=== PATIENT | male | born 1960 | race Caucasian/White ===

== ENCOUNTER 2017-02-20 19:42 | Emergency (ER) | payer BC, OTHER ==
[~2017-02-20] VITALS: Ht 177.8 cm; Wt 80.0 kg
[2017-02-20 20:13] VITALS: BP 146/94; PULSE 108; RESP 16; TEMP 98.2; O2SAT 95
[2017-02-20] MEDS ORDERED: LISI30TA4 PO (20:22)
--- NOTE | 2017-02-20 20:33 | PD ---
HPI Chief Complaint: Psychiatric Symptoms Time Seen by Provider: 20:29 Travel History International Travel<30 days: No Contact w/Intl Traveler<30days: No Traveled to known affect area: No History of Present Illness HPI Patient comes in under a [place] act by police for making suicidal statements. Patient reports that he lost his dog and has been drinking heavily this weekend. Patient denies any homicidal or suicidal ideations currently. Patient states he normally drinks 2-3 beers a day. Patient states he is supposed be taking lisinopril and takes it every other day. Patient denies any chest pain, shortness of breath, fevers, abdominal pain, nausea, vomiting, headache, or other concerns. Denies anything making symptoms better or worse. PFSH Past Medical History Hypertension: Yes Social History Alcohol Use: Yes Tobacco Use: Yes Substance Use: Yes (marijuana) Allergies-Medications (Allergen,Severity, Reaction): Coded Allergies: No Known Allergies (Unverified , 02/20/17) Reported Meds & Prescriptions Reported Meds & Active Scripts Active Reported Lisinopril 30 Mg Tab 15 Mg PO DAILY Review of Systems ROS Limitations: Intoxication Except as stated in HPI: all other systems reviewed are Neg Physical Exam Exam Limitations: Intoxication Narrative GENERAL: Well-developed, well nourished, in no acute distress, and non-ill appearing. Alcohol noted on breath. SKIN: Focused skin assessment warm and dry. HEAD: Atraumatic. Normocephalic. EYES: Pupils equal and round. EOMI. No scleral icterus. No injection or drainage. ENT: No nasal bleeding or discharge. Mucous membranes pink and moist. NECK: Trachea midline. Supple. No nuclear rigidity. CARDIOVASCULAR: Regular rate and rhythm. No murmur appreciated. RESPIRATORY: No accessory muscle use. No respiratory distress. Clear to auscultation. Breath sounds equal bilaterally. MUSCULOSKELETAL: No obvious deformities. No clubbing. No cyanosis. No edema. Full range of motion. NEUROLOGICAL: Awake and alert. No obvious cranial nerve deficits. Motor grossly within normal limits. Normal speech. PSYCHIATRIC: Appropriate mood and affect. Data Data Last Documented VS Vital Signs Date Time Temp Pulse Resp B/P (MAP) Pulse Ox O2 Delivery O2 Flow Rate FiO2 02/20/17 20:13 98.2 108 16 146/94 (111) 95 Orders Orders Complete Blood Count With Diff (02/20/17 20:30) Comprehensive Metabolic Panel (02/20/17 20:30) Psych Screen (02/20/17 20:30) Drug Screen, Random Urine (02/20/17 20:30) Alcohol (Ethanol) (02/20/17 20:30) Salicylates (Aspirin) (02/20/17 20:30) Tylenol (Acetaminophen) (02/20/17 20:30) Labs Laboratory Tests Test 02/20/17 20:40 White Blood Count 7.3 TH/MM3 Red Blood Count 5.06 MIL/MM3 Hemoglobin 17.1 GM/DL Hematocrit 49.8 % Mean Corpuscular Volume 98.4 FL Mean Corpuscular Hemoglobin 33.7 PG Mean Corpuscular Hemoglobin Concent 34.2 % Red Cell Distribution Width 13.2 % Platelet Count 216 TH/MM3 Mean Platelet Volume 7.3 FL Neutrophils (%) (Auto) 51.6 % Lymphocytes (%) (Auto) 36.0 % Monocytes (%) (Auto) 9.5 % Eosinophils (%) (Auto) 2.4 % Basophils (%) (Auto) 0.5 % Neutrophils # (Auto) 3.8 TH/MM3 Lymphocytes # (Auto) 2.6 TH/MM3 Monocytes # (Auto) 0.7 TH/MM3 Eosinophils # (Auto) 0.2 TH/MM3 Basophils # (Auto) 0.0 TH/MM3 CBC Comment DIFF FINAL Differential Comment Blood Urea Nitrogen 15 MG/DL Creatinine 0.92 MG/DL Random Glucose 85 MG/DL Total Protein 7.6 GM/DL Albumin 4.5 GM/DL Calcium Level 8.5 MG/DL Alkaline Phosphatase 98 U/L Aspartate Amino Transf (AST/SGOT) 34 U/L Alanine Aminotransferase (ALT/SGPT) 30 U/L Total Bilirubin 0.3 MG/DL Sodium Level 141 MEQ/L Potassium Level 4.2 MEQ/L Chloride Level 105 MEQ/L Carbon Dioxide Level 26.5 MEQ/L Anion Gap 10 MEQ/L Estimat Glomerular Filtration Rate 84 ML/MIN Salicylates Level 2.6 MG/DL Acetaminophen Level LESS THAN 2.0 MCG/ML Ethyl Alcohol Level 269 MG/DL MDM Medical Decision Making Medical Screen Exam Complete: Yes Emergency Medical Condition: Yes Differential Diagnosis Alcohol intoxication, alcohol abuse, metabolic disturbance, substance induced mood disorder, depression, suicidal, homicidal, other Narrative Course Patient was seen and examined. Labs were obtained and reviewed with the exception of urine drug screen has not been collected. Patient medically cleared for further treatment and evaluation by psych. Final disposition per psych. Diagnosis Primary Impression: Alcohol intoxication Qualified Codes: F10.920 - Alcohol use, unspecified with intoxication, uncomplicated Additional Impression: Medical clearance for psychiatric admission Condition: Stable Bishop Cronin Feb 20, 2017 20:33
[2017-02-20 21:06] LABS: AUTOMATED NEUTROPHIL # 3.8 TH/MM3 (1.8-7.7); BASOPHIL % 0.5 % (0.0-2.0); EOSINOPHIL # 0.2 TH/MM3 (0-0.4); EOSINOPHIL % 2.4 % (0.0-4.0); HEMATOCRIT 49.8 % (39.0-51.0); HEMO FLAGS DIFF FINAL; LYMPHOCYTE # 2.6 TH/MM3 (1.0-4.8); MEAN CELL VOLUME 98.4 FL (80.0-100.0); MEAN CORPUSCULAR HEMOGLOBIN 33.7 PG (27.0-34.0); MEAN CORPUSCULAR HGB CONC 34.2 % (32.0-36.0); MONO % 9.5 % (0.0-8.0); NEUT % 51.6 % (16.0-70.0); PLATELET COUNT 216 TH/MM3 (150-450); RED BLOOD COUNT 5.06 MIL/MM3 (4.50-5.90); RED CELL DISTRIBUTION WIDTH 13.2 % (11.6-17.2); WHITE BLOOD COUNT 7.3 TH/MM3 (4.0-11.0)
[2017-02-20 21:24] LABS: ANION GAP 10 MEQ/L (5-15); AST (GOT) 34 U/L (15-37); BICARBONATE 26.5 MEQ/L (21.0-32.0); BLOOD UREA NITROGEN 15 MG/DL (7-18); CHLORIDE 105 MEQ/L (98-107); GLOMERULAR FILTRATION RATE 84 ML/MIN (>89); POTASSIUM 4.2 MEQ/L (3.5-5.1); SODIUM (NA) 141 MEQ/L (136-145)
[2017-02-20 21:27] LABS: ALKALINE PHOSPHATASE 98 U/L (45-117); ALT (GPT) 30 U/L (12-78); TOTAL BILIRUBIN ADULT 0.3 MG/DL (0.2-1.0)
[2017-02-20 21:32] LABS: ACETAMINOPHEN LESS THAN 2.0 MCG/ML (10.0-30.0); ALCOHOL 269 MG/DL (0-5)
[2017-02-21] MEDS ORDERED: LORazepam 2 MG/ML VIAL IV PUSH PRN ×4 (01:30)
[2017-02-21] MEDS ORDERED: LORazepam 1 MG TAB PO PRN (01:30)
[2017-02-21] MEDS ORDERED: FLUMAZENIL 0.5 MG/5 ML VIAL IV PUSH PRN (01:30)
[2017-02-21] MEDS ORDERED: LORazepam 2 MG TAB PO PRN (01:30)
[2017-02-21 06:11] VITALS: BP 157/98; PULSE 101; RESP 20
[2017-02-21 08:09] VITALS: BP 180/104; PULSE 104; RESP 18; O2SAT 95
[2017-02-21] MEDS ORDERED: LISINOPRIL 20 MG TAB PO ONE (08:15)
[2017-02-21 10:33] VITALS: BP_SYST 115; BP_SYST 134; BP_DIAS 20; BP_DIAS 85; PULSE 115; RESP 20; O2SAT 97
[2017-02-21 13:11] VITALS: BP 156/80; PULSE 110; RESP 18; TEMP 97.9; O2SAT 96
--- NOTE | 2017-02-21 14:01 | PD ---
Physical Exam Date Seen by Provider: Feb 21, 2017 Time Seen by Provider: 13:59 Narrative For full history and physical examination please see previous provider's note. Patient was brought to emergency Department under [place] act for psychiatric evaluation. Data Data Last Documented VS Vital Signs Date Time Temp Pulse Resp B/P (MAP) Pulse Ox O2 Delivery O2 Flow Rate FiO2 02/21/17 13:11 97.9 110 18 156/80 (105) 96 Room Air Orders Orders Complete Blood Count With Diff (02/20/17 20:30) Comprehensive Metabolic Panel (02/20/17 20:30) Psych Screen (02/20/17 20:30) Drug Screen, Random Urine (02/20/17 20:30) Alcohol (Ethanol) (02/20/17 20:30) Salicylates (Aspirin) (02/20/17 20:30) Tylenol (Acetaminophen) (02/20/17 20:30) Alcohol Withdrawal Asmt-Ciwa ONCE (02/21/17 01:22) Flumazenil Inj (Romazicon Inj) (02/21/17 01:30) Lorazepam (Ativan) (02/21/17 01:30) Lorazepam Inj (Ativan Inj) (02/21/17 01:30) Lorazepam (Ativan) (02/21/17 01:30) Lorazepam Inj (Ativan Inj) (02/21/17 01:30) Lorazepam Inj (Ativan Inj) (02/21/17 01:30) Lorazepam Inj (Ativan Inj) (02/21/17 01:30) Diet Regular Basic (02/21/17 Breakfast) Lisinopril (Prinivil) (02/21/17 08:15) Ed Discharge Order (02/21/17 13:59) Labs Laboratory Tests Test 02/20/17 20:40 02/20/17 23:00 White Blood Count 7.3 TH/MM3 Red Blood Count 5.06 MIL/MM3 Hemoglobin 17.1 GM/DL Hematocrit 49.8 % Mean Corpuscular Volume 98.4 FL Mean Corpuscular Hemoglobin 33.7 PG Mean Corpuscular Hemoglobin Concent 34.2 % Red Cell Distribution Width 13.2 % Platelet Count 216 TH/MM3 Mean Platelet Volume 7.3 FL Neutrophils (%) (Auto) 51.6 % Lymphocytes (%) (Auto) 36.0 % Monocytes (%) (Auto) 9.5 % Eosinophils (%) (Auto) 2.4 % Basophils (%) (Auto) 0.5 % Neutrophils # (Auto) 3.8 TH/MM3 Lymphocytes # (Auto) 2.6 TH/MM3 Monocytes # (Auto) 0.7 TH/MM3 Eosinophils # (Auto) 0.2 TH/MM3 Basophils # (Auto) 0.0 TH/MM3 CBC Comment DIFF FINAL Differential Comment Blood Urea Nitrogen 15 MG/DL Creatinine 0.92 MG/DL Random Glucose 85 MG/DL Total Protein 7.6 GM/DL Albumin 4.5 GM/DL Calcium Level 8.5 MG/DL Alkaline Phosphatase 98 U/L Aspartate Amino Transf (AST/SGOT) 34 U/L Alanine Aminotransferase (ALT/SGPT) 30 U/L Total Bilirubin 0.3 MG/DL Sodium Level 141 MEQ/L Potassium Level 4.2 MEQ/L Chloride Level 105 MEQ/L Carbon Dioxide Level 26.5 MEQ/L Anion Gap 10 MEQ/L Estimat Glomerular Filtration Rate 84 ML/MIN Salicylates Level 2.6 MG/DL Acetaminophen Level LESS THAN 2.0 MCG/ML Ethyl Alcohol Level 269 MG/DL Urine Opiates Screen NEG Urine Barbiturates Screen NEG Urine Amphetamines Screen NEG Urine Benzodiazepines Screen NEG Urine Cocaine Screen NEG Urine Cannabinoids Screen POS MDM Medical Record Reviewed: Yes Supervised Visit with JOY: No Narrative Course Patient is a 56 year-old male that was brought to emergency department under [facility] for psychiatric evaluation. He was seen and evaluated in the emergency department and then medically cleared. He was then seen by the psychiatrist. Patient was deemed safe for discharge and [place] act was lifted. Patient is to follow-up at [facility]. He can return to emergency department for any new or worsening symptoms. Patient is stable for discharge. Diagnosis Primary Impression: Alcohol intoxication Qualified Codes: F10.920 - Alcohol use, unspecified with intoxication, uncomplicated Additional Impression: Medical clearance for psychiatric admission Referrals: [facility] Patient Instructions: General Instructions Departure Forms: Work Release, Enter return to work date: Feb 22, 2017 Tests/Procedures Additional Instruction: Follow-up at [facility] Avoid excessive intake of alcohol Return to emergency department for any new or worsening symptoms Med/Other Pt SpecificInfo: No Change to Meds Disposition: 01 DISCHARGE HOME Condition: Stable Aviva Shelton Feb 21, 2017 14:01
--- NOTE | 2017-02-21 14:02 | PD ---
History of Present Illness Chief Complaint: Psychiatric Symptoms Time Seen by Provider: 14:00 Travel History International Travel<30 Days: No Contact w/Intl Traveler<30days: No Known affected area: No Legal Status Legal Status: [place] Act [place] Act Signed By: Shonna العلي History of Present Illness: 56-year-old male who threatened to commit suicide last night while intoxicated. Apparently his ran over the dog by accident. At this time he is no longer intoxicated and he is verbally bruno for safety. He verbalizes his understanding that his ran over the dog by accident. He admits to being a daily drinker. However he does work and functions adequately at his job. Apparently he works for [employer] in [place]. He is verbally bruno for safety and he is competent to do so. PFSH Past Medical History Hypertension: Yes Psychiatric History Psychiatric History Hx Psychiatric Treatment: HX: ANXIETY History of Inpatient Treatment: No Guns or firearms in home: No Social History Hx Alcohol Use: Yes Hx Tobacco Use: Yes Hx Substance Use: Yes Substance Use Type: Alcohol Hx of Substance Use Treatment: No Allergies-Medications (Allergen,Severity, Reaction): Coded Allergies: No Known Allergies (Unverified , 02/20/17) Reported Meds & Prescriptions Reported Meds & Active Scripts Active Reported Lisinopril 30 Mg Tab 15 Mg PO DAILY Review of Systems Except as stated in HPI: all other systems reviewed are Neg Mental Status Examination Appearance: Appropriate Consciousness: Alert Orientation: x4 Motor Activity: Normal gait Speech: Unremarkable Language: Adequate Fund of Knowledge: Adequate Attention and Concentration: Adequate Memory: Unremarkable Mood: Appropriate Affect: Appropriate Thought Process & Associations: Intact Thought Content: Appropriate Hallucination Type: None Delusion Type: None Suicidal Ideation: No Suicidal Plan: No Suicidal Intention: No Homicidal Ideation: No Homicidal Plan: No Homicidal Intention: No Insight: Adequate Judgment: Adequate MDM Medical Decision Making Medical Record Reviewed: Yes Assessment/Plan Patient interviewed at bedside, medical record reviewed and case discussed with nurses Kizzy and Lester. Patient is no longer intoxicated and he is verbally bruno for safety. He denies suicidal or homicidal ideation, plan or intent. Orders Orders Complete Blood Count With Diff (02/20/17 20:30) Comprehensive Metabolic Panel (02/20/17 20:30) Psych Screen (02/20/17 20:30) Drug Screen, Random Urine (02/20/17 20:30) Alcohol (Ethanol) (02/20/17 20:30) Salicylates (Aspirin) (02/20/17 20:30) Tylenol (Acetaminophen) (02/20/17 20:30) Alcohol Withdrawal Asmt-Ciwa ONCE (02/21/17 01:22) Flumazenil Inj (Romazicon Inj) (02/21/17 01:30) Lorazepam (Ativan) (02/21/17 01:30) Lorazepam Inj (Ativan Inj) (02/21/17 01:30) Lorazepam (Ativan) (02/21/17 01:30) Lorazepam Inj (Ativan Inj) (02/21/17 01:30) Lorazepam Inj (Ativan Inj) (02/21/17 01:30) Lorazepam Inj (Ativan Inj) (02/21/17 01:30) Diet Regular Basic (02/21/17 Breakfast) Lisinopril (Prinivil) (02/21/17 08:15) Ed Discharge Order (02/21/17 13:59) Results Vital Signs Date Time Temp Pulse Resp B/P (MAP) Pulse Ox O2 Delivery O2 Flow Rate FiO2 02/21/17 13:11 97.9 110 18 156/80 (105) 96 Room Air 02/21/17 10:33 115 20 134/85 (101) 97 Room Air 02/21/17 08:09 104 18 95 Room Air 180/104 (129) 02/21/17 06:11 101 20 157/98 (117) 02/20/17 20:13 98.2 108 16 146/94 (111) 95 Laboratory Tests Test 02/20/17 20:40 02/20/17 23:00 White Blood Count 7.3 Red Blood Count 5.06 Hemoglobin 17.1 Hematocrit 49.8 Mean Corpuscular Volume 98.4 Mean Corpuscular Hemoglobin 33.7 Mean Corpuscular Hemoglobin Concent 34.2 Red Cell Distribution Width 13.2 Platelet Count 216 Mean Platelet Volume 7.3 Neutrophils (%) (Auto) 51.6 Lymphocytes (%) (Auto) 36.0 Monocytes (%) (Auto) 9.5 Eosinophils (%) (Auto) 2.4 Basophils (%) (Auto) 0.5 Neutrophils # (Auto) 3.8 Lymphocytes # (Auto) 2.6 Monocytes # (Auto) 0.7 Eosinophils # (Auto) 0.2 Basophils # (Auto) 0.0 CBC Comment DIFF FINAL Differential Comment Blood Urea Nitrogen 15 Creatinine 0.92 Random Glucose 85 Total Protein 7.6 Albumin 4.5 Calcium Level 8.5 Alkaline Phosphatase 98 Aspartate Amino Transf (AST/SGOT) 34 Alanine Aminotransferase (ALT/SGPT) 30 Total Bilirubin 0.3 Sodium Level 141 Potassium Level 4.2 Chloride Level 105 Carbon Dioxide Level 26.5 Anion Gap 10 Estimat Glomerular Filtration Rate 84 Salicylates Level 2.6 Acetaminophen Level LESS THAN 2.0 Ethyl Alcohol Level 269 Urine Opiates Screen NEG Urine Barbiturates Screen NEG Urine Amphetamines Screen NEG Urine Benzodiazepines Screen NEG Urine Cocaine Screen NEG Urine Cannabinoids Screen POS Diagnosis Primary Impression: Alcohol abuse Departure Forms: Work Release, Enter return to work date: Feb 22, 2017 Tests/Procedures Patient Instructions: General Instructions Condition: Stable Godwin Raymond MD Feb 21, 2017 14:02
== END 2017-02-21 15:22 | disposition home or self-care (01) ==
LOC: NEDAMB 19:42 → NEPJ 02-21 15:22
DX: F10.129 Alcohol abuse with intoxication, unspecified (principal); I10 Essential (primary) hypertension; Y90.8 Blood alcohol level of 240 mg/100 ml or more; Z72.0 Tobacco use; Z79.899 Other long term (current) drug therapy
CPT/HCPCS: 80053; 80307; 85025; 96374; 96375; 96376